=== PATIENT | female | born 1995 | race Caucasian/White ===

== ENCOUNTER → 2019-12-12 | Outpatient (CLI) | payer OTHER ==
[~2019-12-12] MED LIST: LEVOTHYROXINE25 MCG PO; NOHOMEMEDICATIONS; PROAIR HFA8.5 GM INH
== END ==
LOC: M.LAB 08:45
PROVIDERS: ATTEND Surgery
DX: Z01.812 Encounter for preprocedural laboratory examination (principal); Z20.828 Contact with and (suspected) exposure to other viral communicable diseases; K80.20 Calculus of gallbladder without cholecystitis without obstruction

== ENCOUNTER → 2019-12-15 | Day surgery (SDC) | payer OTHER ==
[~2019-12-15] MED LIST changes: +NORCO 5-325 TA1 EAC2 PO
--- NOTE | ~2019-12-15 | OP ---
[facility] [address] [place] [address] OPERATIVE REPORT Name: ANDRES RICHTER Room: [facility].#: [id number] Admission: 12/15/19 Attend Phys: Godfrey Gregory Discharge: Date of : 89 Report #: [id number] THIS REPORT FOR: //name// cc: Poly Elizondo MD, Ami MD ~ CC: Poly Gregory DATE OF SERVICE: 12/15/2019 PREOPERATIVE DIAGNOSIS: Symptomatic cholelithiasis. POSTOPERATIVE DIAGNOSIS: Symptomatic cholelithiasis. OPERATION: Laparoscopic cholecystectomy. SURGEON: Godfrey Gregory MD ANESTHESIA: General. ESTIMATED BLOOD LOSS: 20 mL. SPECIMEN: Gallbladder and gallstone. DESCRIPTION OF PROCEDURE: After informed consent was obtained, the patient was brought to the operating room and placed supine. SCDs were placed and working, preoperative antibiotics were administered, general anesthesia was induced. The abdomen was prepped and draped in the usual sterile fashion. A 10 mm incision was made above the umbilicus. Fascia was incised and a trocar was placed. Pneumoperitoneum was established. Three right upper quadrant 5 mm ports were placed. Gallbladder was grasped at the fundus and retracted cephalad. Infundibulum was grasped and retracted laterally. I dissected out the cystic duct and cystic artery. The cystic duct and artery were clipped and ligated leaving 2 clips on the remaining duct and one on the remaining artery. This was done only after the cystic plate was fully identified. The gallbladder was then taken off the liver bed with electrocautery. It was placed into an Endopouch and removed. The fascia was then closed with a [id number] 0 Vicryl. Skin was closed with 4-0 Monocryl. Incisions were sealed with Dermabond. COMPLICATIONS: [place] [address] OPERATIVE REPORT Name: BECKI RICHTERN Room: [facility]#: [id number] Admission: 12/15/19 Attend Phys: Godfrey Gregory Discharge: Date of : 89 Report #: [id number] DISPOSITION: The patient was taken to recovery in satisfactory condition. By: [id number] Gregory MD /leticia
[2019-12-15 08:20] LABS: HEMATOCRIT 42.8 % (37.0-47.0); HEMOGLOBIN 14.4 gm/dL (12.0-15.0)
[2019-12-15 08:26] LABS: CALCIUM 8.6 mg/dL (8.5-10.1); POTASSIUM 3.8 mmol/L (3.5-5.1)
[2019-12-15 08:31] LABS: ALBUMIN 3.4 g/dL (3.4-5.0); TOTAL BILIRUBIN 0.2 mg/dL (<0.1-1.0); TOTAL PROTEIN 7.6 g/dL (6.4-8.2)
--- NOTE | 2019-12-18 18:06 | PATH ---
[address] [address] PATHOLOGY RPT PROCEDURE Name: MARGARET AUGUST Room: [facility]#: [id number] Admission: 12/15/19 Date of : 89 Discharge: Report #: [id number] Path Case #: [id number] [facility] Accession Number: [id number] . 01 Material submitted: . gallbladder - GALLBLADDER AND CONTENTS . 01 Clinical history: . CALCULOUS OF GALLBLADDER . 02 Diagnosis: Gallbladder and contents: - Chronic cholecystitis, cholesterolosis and cholelithiasis with prominent benign sentinel lymph node. . (SIGIFREDO:mml; 12/18/2019) [facility] 12/18/2019 1545 Local . 02 Electronically signed: . Pedro Hammer MD, Pathologist NPI- [id number] . 01 Gross description: . Received in formalin labeled "August, Margaret, gallbladder and contents" is a previously opened cholecystectomy specimen measuring 6.4 x 2.4 x 2.4 cm. The serosa is pink-decker and smooth with a full thickness defect in the hepatic bed measuring 1.8 cm. A lymph node is identified adjacent to the cystic neck, measuring 1.2 cm in greatest dimension. The specimen is opened to reveal red-brown velvety mucosa with scant yellow stippling without polyps or masses. The average wall thickness is 0.3 cm. Multiple yellow-green bosselated calculi are present within the gallbladder and container, measuring in aggregate 3.0 x 3.0 x 1.8 cm, and ranging from 0.3-2.2 cm in greatest dimension. [employer] sections of the fundus and body, the entire lymph node, and the cystic duct margin are submitted in A1. ([facility]; 12/17/2019) [facility] 12/17/2019 0922 Local . 02 Pathologist provided ICD-10: K80.10, K82.4 . 02 CPT . 794246 Specimen Comment: A courtesy copy of this report has been sent to [phone] Specimen Comment: [phone] Specimen Comment: Report sent to / DR VILLEDA Performed at: [address] [place] [address] PATHOLOGY RPT PROCEDURE Name: MARGARET AUGUST Room: [facility].#: [id number] Admission: 12/15/19 Date of : 89 Discharge: Report #: [id number] Path Case #: [id number] [address] [facility] [address], [place] [id number] MD Fadi Goode MD Phone: [phone] Performed at: 02 [facility] [address], [place], [place] [id number] MD Pedro Hammer MD Phone: [phone]
== END | disposition home or self-care (01) ==
LOC: M.SUR 05:20
PROVIDERS: ATTEND Surgery
DX: K80.10 Calculus of gallbladder with chronic cholecystitis without obstruction (principal); E03.9 Hypothyroidism, unspecified; Z79.899 Other long term (current) drug therapy; Z98.890 Other specified postprocedural states